=== PATIENT | male | born 1930 | race Caucasian/White ===

== ENCOUNTER 2020-02-08 19:38 | Emergency (ER) | payer MEDICARE, BC ==
[~2020-02-08] VITALS: Ht 182.9 cm; Wt 77.1 kg
--- NOTE | 2020-02-08 19:43 | NUR ---
PT AAOX4. BIBRA FROM HOME C/O WITNESSED SYNCOPAL EP. PER RA GORDON. PT IS AAOX4. RR EVEN AND UNLABORED, DENIES CP. DENIES ANY TRAMA. UPON ASSESSMENT ABRASION NOTED ON L KNEE. NO ACUTE DISTRESS NOTED. MD AT BEDSIDE FOR EVAL. PLACED ON MONITOR AND PULSE OX. VSS. AWAITING MD FOR ORDERS. Addendum: 02/08/20 at 2023 by EVICTOR ABRASION NOTED ON L ELBOW AND MINIMAL ON L SIDE OF HEAD.
--- NOTE | 2020-02-08 19:49 | NUR ---
CALLED , NO ANSWER. AWARE.
[2020-02-08] MEDS ORDERED: IV NS 0.9% 500 ML BAG IV ONE (20:00)
--- NOTE | 2020-02-08 20:03 | NUR ---
PARTS SALESMAN AT BEDSIDE FOR LABS.
[2020-02-08 20:07] LABS: BASOPHILS # (AUTO) 0.1 /CMM (0.0-0.2); BASOPHILS % (AUTO) 0.6 % (0.0-2.0); EOSINOPHILS % (AUTO) 0.2 % (0.0-6.0); HEMATOCRIT 31 % (39-51); LYMPHOCYTES # (AUTO) 0.3 /CMM (0.8-4.8); LYMPHOCYTES % (AUTO) 2.1 % (20.0-44.0); MEAN CORPUSCULAR HGB CONC 33 g/dl (31.0-36.0); MEAN CORPUSCULAR VOLUME 96 fL (80-96); MONOCYTES # (AUTO) 0.7 /CMM (0.1-1.30); MONOCYTES % (AUTO) 4.6 % (2.0-12.0); NEUTROPHILS # (AUTO) 13.4 /CMM (1.8-8.9); NEUTROPHILS % (AUTO) 92.5 % (43.0-81.0); PLATELET COUNT (AUTO) 388 /CMM (150-450); RED BLOOD CELL COUNT(AUTO) 3.22 MIL/uL (4.5-6.0); WHITE BLOOD COUNT (AUTO) 14.5 K/uL (4.3-11.0)
--- NOTE | 2020-02-08 20:19 | NUR ---
CALLED FOR COVID SWAB
--- NOTE | 2020-02-08 20:23 | NUR ---
SPOKE TO . STATED SHE WAS WITH THE PT [place] WHERE [place] WAS SIT[place]. PT TRIED STANDING UP BUT ENDED UP FALLING. NO KO. AWARE. ALSO STATED HAD HIS HIP REPLACEMET SURGERY ON THE .
[2020-02-08 20:32] LABS: CALCIUM, SERUM 9.3 mg/dL (8.5-10.1); CARBON DIOXIDE 25 mmol/L (21-32); CHLORIDE 102 mmol/L (98-107); GLUCOSE 153 mg/dL (74-106); SODIUM SERUM 138 mmol/L (136-145); UREA NITROGEN, BLOOD 15 mg/dL (7-18)
--- NOTE | 2020-02-08 20:32 | NUR ---
HAO SWABBED AND SENT TO LAB
[2020-02-08 20:38] LABS: ALANINE AMINOTRANSFERASE 26 U/L (12-78); ALBUMIN 2.9 g/dL (3.4-5.0); ALKALINE PHOSPHATASE 99 U/L (46-116); ASPARTATE AMINOTRANSFERASE 33 U/L (15-37); BILIRUBIN,DIRECT 0.1 mg/dL (0.0-0.2); BILIRUBIN,TOTAL 0.5 mg/dL (0.2-1.0)
--- NOTE | 2020-02-08 21:10 | NUR ---
RAMAN GOODMAN ORTHOPEDIC MD
--- NOTE | 2020-02-08 21:12 | NUR ---
DR NIX PAGED PER DR SINCLAIR
[2020-02-08] MEDS ORDERED: LORAZEPAM INJ 2 MG/ML VIAL IV ONE (21:30)
[2020-02-08] MEDS ORDERED: LORAZEPAM INJ 2 MG/ML VIAL ONE (21:32)
[2020-02-08] MEDS ORDERED: PROPOFOL 20 ML IV ONE (22:08)
--- NOTE | 2020-02-08 22:13 | NUR ---
TRIED CALLING NO ONE PICKED UP. WILL CALL BACK WITH POTENTIAL MD.
--- NOTE | 2020-02-08 22:15 | NUR ---
DR SINCLAIR AT BEDSIDE FOR LEFT HIP REDUCTION WITH RN AND RT.
[2020-02-08] MEDS ORDERED: PROPOFOL 200 MG/20 ML VIAL IV ONE (22:30)
--- NOTE | 2020-02-08 23:15 | NUR ---
RESTING COMFORTABLY. VSS.
--- NOTE | 2020-02-08 23:59 | NUR ---
PT WILL BE TRANSFERRED TO [facility]ED [facility] [place]: [id number] NUMBER FOR REPORT [phone] PT NEEDS TO STOP BY ER ON ARRIVAL
--- NOTE | 2020-02-09 00:02 | NUR ---
[facility] ETA 1 HR
[2020-02-09 00:08] VITALS: BP 130/78
--- NOTE | 2020-02-09 00:15 | NUR ---
SPOKE TO IRLANDA RAGLAND FOR MERARI
--- NOTE | 2020-02-09 01:43 | NUR ---
REPORT GIVEN TO TRANSPORT. PT TRANSFERED TO [facility].
== END 2020-02-09 01:44 | disposition short-term general hospital (02) ==
LOC: ER 19:41
DX: T84.021A Dislocation of internal left hip prosthesis, initial encounter (principal); R94.31 Abnormal electrocardiogram [ECG] [EKG]; D64.9 Anemia, unspecified; D72.829 Elevated white blood cell count, unspecified; Z96.643 Presence of artificial hip joint, bilateral; I70.0 Atherosclerosis of aorta; I67.2 Cerebral atherosclerosis; R00.0 Tachycardia, unspecified; Z20.828 Contact with and (suspected) exposure to other viral communicable diseases; V48.4XXA Person boarding or alighting a car injured in noncollision transport accident, initial encounter; Y92.014 Private driveway to single-family (private) house as the place of occurrence of the external cause; D71 Functional disorders of polymorphonuclear neutrophils
CPT/HCPCS: 27265; 36415; 70450; 71045; 73501; 73503; 80048; 80076; 84484; 85025; 85730; 87081; 87426; 93005; 96374; 99285; J2060; J2704; J7030; J7040; 73020; 73502; C9803-CS